=== PATIENT | female | born 1985 | race Caucasian/White ===

== ENCOUNTER → 2017-07-09 13:40 | Outpatient (CLI) | payer OTHER, SELFPAY ==
[2017-07-09 15:51] LABS: Color, Urine Yellow (Yellow); Glucose, Dipstick Normal (Normal); Leukocyte Esterase-Dipstick Negative /ul (Negative); Protein-Dipstick Negative (Negative); Urine Bilirubin Dipstick Negative (Negative); Urine Clarity Clear (Clear); Urine Urobilinogen Normal (Normal)
[2017-07-09 16:05] LABS: Ketone-Dipstick 15 mg/dl (Negative)
[2017-07-09 16:06] LABS: Nitrite-Dipstick NEGATIVE (Negative); Specific Gravity, Urine 1.015 (1.002-1.030); Urine pH 6.5 (5.0 - 8.0)
[2017-07-09 16:11] LABS: Absolute Lymphocyte Count 1.21 X10^3/ul (0.83-4.51); Absolute Neutrophil Count 5.5 X10^3/uL (2.0-7.7); Basophil# 0.02 X10^3/uL; Basophil% 0.3 % (0-1); Eosinophil# 0.09 X10^3/uL; Eosinophils% 1.3 % (0-5); Hematocrit 35.3 % (37-47); Hemoglobin 12.2 g/dl (12.0-15.0); Lymphocyte # 1.21 X10^3/ul (4.0); Lymphocyte % 16.8 % (19-41); Mean Corp Hgb Conc 34.6 g/gl (32-36); Mean Corpuscular Hgb 31.5 pg (27.0-32.0); Mean Corpuscular Volume 91.2 fL (81-99); Mean Platelet Vol. 9.2 fl (6.2-12.0); Monocyte# 0.37 X10^3/uL; Monocyte% 5.1 % (0-10); Neutrophil % 76.4 % (47-70); Platelet Count 249 K/mm3 (150-450); RBC Distribution Width CV 13.2 % (11.6-14.6); RBC Distribution Width SD 43.4 fl (35.1-43.9); Red Blood Count 3.87 M/mm3 (4.2-5.4); White Blood Count 7.2 K/mm3 (4.4-11.0)
[2017-07-09 16:12] LABS: Occult Blood-Urine Negative /ul (Negative); POSITIVE COUNT NO; POSITIVE DIFFERENTIAL NO; POSITIVE MORPHOLOGY NO
[2017-07-09 16:32] LABS: Thyroid Stim Hormone (TSH) 3.52 uIU/mL (0.358-3.74)
[2017-07-09 17:28] LABS: HIV - WCH Non-Reactive (Nonreactive); Rubella IgG < 0.2 IU/mL
[2017-07-09 17:32] LABS: Chlamydia Trachomatis by PCR Negative (Negative); Neisserai gonorrhoeae by PCR Negative (Negative); Probe Check PASS; Sample Adequacy Control PASS; Specimen Processing Control PASS
[2017-07-11 11:02] LABS: HEPATITIS B SURFACE AG Negative (Negative); Hep C Antibodies <0.1 s/co ratio (0.0-0.9)
[2017-07-13 01:08] LABS: Prenatal RPR NONREACTIVE (NONREACTIVE)
[2017-07-14 12:47] LABS: HPV Reflexed? NOT INDICATED
== END ==
PROVIDERS: Visit Provider Obstetrics & Gynecology
DX: Z34.82 Encounter for supervision of other normal pregnancy, second trimester (principal); Z12.4 Encounter for screening for malignant neoplasm of cervix; Z11.3 Encounter for screening for infections with a predominantly sexual mode of transmission
CPT/HCPCS: 36415; 81002; 84443; 85025; 86703; 86762; 86803; 87340; 87491; 87591; 88175; G0145

== ENCOUNTER → 2017-10-02 10:09 | Outpatient (CLI) | payer OTHER, SELFPAY ==
[2017-10-02 11:11] LABS: Hematocrit 31.4 % (37-47); Hemoglobin 11.2 g/dl (12.0-15.0); Mean Corp Hgb Conc 35.7 g/gl (32-36); Mean Corpuscular Hgb 32.9 pg (27.0-32.0); Mean Corpuscular Volume 92.4 fL (81-99); Mean Platelet Vol. 8.9 fl (6.2-12.0); Platelet Count 206 K/mm3 (150-450); RBC Distribution Width SD 43.9 fl (35.1-43.9); Scan Indicated on CBC? Y/N NO; White Blood Count 7.2 K/mm3 (4.4-11.0)
[2017-10-02 11:20] LABS: Glucose Challenge Gest 1H 50g 94 mg/dL (70-140)
== END ==
PROVIDERS: Visit Provider Obstetrics & Gynecology
DX: Z34.83 Encounter for supervision of other normal pregnancy, third trimester (principal)
CPT/HCPCS: 36415; 82950; 85027

== ENCOUNTER → 2017-11-19 18:20 | Outpatient (CLI) | payer OTHER, SELFPAY ==
[2017-11-19 19:38] LABS: Group B Strep DNA By PCR Negative (Negative); Internal Control PASS; Probe Check PASS; Specimen Processing Control PASS
== END ==
PROVIDERS: Family Provider Family Medicine; PCP Family Medicine; Visit Provider Obstetrics & Gynecology
DX: Z36.85 Encounter for antenatal screening for Streptococcus B (principal)
CPT/HCPCS: 87081; 87653

== ENCOUNTER 2017-12-10 06:50 | Inpatient (IN) | payer SELFPAY ==
[2017-12-10] MEDS: Lactated Ringers 1,000 ML 50 ML IV ×2 (07:55→11:00)
[2017-12-10 08:08] LABS: Hematocrit 36.3 % (37-47); Hemoglobin 12.8 g/dl (12.0-15.0); Mean Corp Hgb Conc 35.3 g/gl (32-36); Mean Corpuscular Hgb 33.2 pg (27.0-32.0); Mean Corpuscular Volume 94.3 fL (81-99); Mean Platelet Vol. 9.3 fl (6.2-12.0); Platelet Count 203 K/mm3 (150-450); RBC Distribution Width CV 13.1 % (11.6-14.6); RBC Distribution Width SD 44.8 fl (35.1-43.9); Red Blood Count 3.85 M/mm3 (4.2-5.4); Scan Indicated on CBC? Y/N NO; White Blood Count 8.6 K/mm3 (4.4-11.0)
[2017-12-10 08:22] VITALS: BMI 25.1
[2017-12-10] MEDS: fentaNYL-bupivacaine (epidural) 100 ML BAG EPIDURAL (09:55)
[2017-12-10] MEDS: Oxytocin 30 units/NS 500 ml 30 UNITS/500 ML IV.SOLN 334 UNITS IV (12:48)
[2017-12-10] MEDS: Oxytocin 30 units/NS 500 ml 30 UNITS/500 ML IV.SOLN 167 UNITS IV (13:17)
[2017-12-10] MEDS: 0.9% Saline Lock 10 ML Syringe IV (14:30)
--- NOTE | 2017-12-10 17:46 | PCM.OB.VAG ---
Vaginal Delivery Maternal Presentation: Active Labor 39 wk prior C section. Labor. Amniotic Membrane Rupture Type: Artificial Amniotic Fluid Description: Clear Final JOSÉ: 12/17/17 Gestational age: 39 Weeks and 0 Days Date of Procedure: 12/10/17 Pre-Operative Diagnosis: 39 wk labor Post-Operative Diagnosis: Same S/P . Surgery/ Procedure Performed: Spontaneous Vaginal Delivery Anesthesiologist: Lisa Johnson - ALISHA Type of Anesthesia: Epidural Description of Procedure: of a velasquez viable female over 2nd degree laceration Head delivered CHARLEE No nuchal cord noted. Shoulders delivered easily. OP and nares bulb suctioned and baby to maternal abdomen Cord clamped x two and cut. Baby vigorous and crying. PP exam; 2nd degree vaginal and perineal laceration repaired to hemostatic, intact with 3-0 Vicryl. Small 1st degree L vaginal laceration also repaired. Placenta delivery by spont expulsion, expression. 3V cord intact, normal appearing, non calcified placenta with trailing membranes. EBL 350 cc Pt and tolerated delivery well. To recovery , stable condition. Presentation: Vertex, CHARLEE Placental Delivery Description: Spontaneous, Expressed Placenta Disposition: [facility] Cord Vessel Description: 3 Vessels Cord Entanglement: None Estimated Blood Loss: 350 A gender: Female (1 minute): 8 (5 minute): 9 Episiotomy Description: None Laceration: Midline, 2nd degree - with first deg laceration at L vaginal wall also noted and repaired. Medications given after delivery: IV Pitocin Complications: None
--- NOTE | 2017-12-10 17:55 | PCM.DCVAG ---
Discharge Diet: No Restrictions Discharge Activity: May Shower, May Take a Tub Bath Return to work on:: 01/21/18 May resume sexual activity in: 4-6 weeks Additional Activity Instructions:: Nothing in the vagina for 4-6 weeks. You may return to work/school in 6 weeks. Additional Instructions: If you experience any of the following, contact your healthcare provider. Bleeding that soaks a pad every hour for 2 hours Fever 100.4 or higher Unrelieved abdominal pain Inability to urinate or burning while urinating). Visual changes Severe headache Flu-like symptoms Pain or redness in one of both of your breasts Pain, warmth, tenderness or swelling in your legs, especially the calf area Frequent nausea and vomiting Symptoms of depression or anxiety If you experience any of the following, call 911 or go to the nearest Emergency Room. Chest pain Problems breathing Seizure activity Partial or complete paralysis of a body part, slurred speech, weakness or drooping of the face, or a sudden inability to walk or hold your balance Allergies/Adverse Reactions: Allergies No Known Allergies Allergy (Verified 06/26/16 18:30) Medications to take at Discharge Vits [Prenatabs FA ] 1 tablet PO DAILY 10/21/14 Please Follow Up With: Balbina Cruz MD - [phone] When: Call to make an appointment with your doctor in 6 weeks. Primary Care Physician: Ronald Daugherty MD [Primary Care Provider] - Test Results: Test results from this visit will be discussed in further detail at your follow-up appointment, if applicable.
--- NOTE | 2017-12-10 17:57 | DCINST_ITS ---
Discharge Diet: No Restrictions Discharge Activity: May Shower, May Take a Tub Bath Return to work on:: 01/21/18 May resume sexual activity in: 4-6 weeks Additional Activity Instructions:: Nothing in the vagina for 4-6 weeks. You may return to work/school in 6 weeks. Additional Instructions: If you experience any of the following, contact your healthcare provider. * Bleeding that soaks a pad every hour for 2 hours * Fever 100.4 or higher * Unrelieved abdominal pain * Inability to urinate or burning while urinating). * Visual changes * Severe headache * Flu-like symptoms * Pain or redness in one of both of your breasts * Pain, warmth, tenderness or swelling in your legs, especially the calf area * Frequent nausea and vomiting * Symptoms of depression or anxiety If you experience any of the following, call 911 or go to the nearest Emergency Room. * Chest pain * Problems breathing * Seizure activity * Partial or complete paralysis of a body part, slurred speech, weakness or drooping of the face, or a sudden inability to walk or hold your balance Allergies/Adverse Reactions: Allergies No Known Allergies Allergy (Verified 06/26/16 18:30) Medications to take at Discharge Vits [Prenatabs FA ] 1 tablet PO DAILY 10/21/14 Please Follow Up With: Balbina Cruz MD - [phone] When: Call to make an appointment with your doctor in 6 weeks. Primary Care Physician: Ronald Daugherty MD [Primary Care Provider] - Test Results: Test results from this visit will be discussed in further detail at your follow- up appointment, if applicable.
[2017-12-10 19:45] VITALS: BP 101/57; PULSE 77; RESP 18; TEMP 36.6; O2SAT 98
[2017-12-11 00:42] VITALS: BP 91/55; PULSE 59; RESP 16; TEMP 36.3
[2017-12-11 04:48] VITALS: BP 90/51; PULSE 72; RESP 18; TEMP 36.2
--- NOTE | 2017-12-11 07:17 | PCM.PN.OB ---
Subjective: PPD#1 , Doing well. Nursing, but baby sleepy this am. Pain / cramping with nursing. No other concerns voiced. - Physical Exam General: Alert, Oriented x3, Cooperative, No apparent distress HEENT: Atraumatic Neck: Supple Abdomen: Soft - Fundus firm NT at approx 3 cm inferior to umbilicus Extremities: No edema Neurological: Cranial nerves II-XII grossly intact Psych/Mental Status: Normal Affect Vital Signs Temp Pulse Resp BP Pulse Ox 97.2 F L 72 18 90/51 L 98 12/11/17 04:48 12/11/17 04:48 12/11/17 04:48 12/11/17 04:48 12/10/17 19:45 Oxygen Delivery Method Room Air Weight: 60.4 kg Body Mass Index (BMI) 25.1 Intake and Output for Last 24 Hours 12/09/17 12/10/17 12/11/17 23:59 23:59 23:59 Intake Total 2750 / 2750 Output Total 1500 / 1500 Balance 1250 / 1250 Laboratory Tests Past 24 Hrs 12/10/17 12/10/17 07:55 07:55 WBC 8.6 RBC 3.85 L Hgb 12.8 Hct 36.3 L MCV 94.3 MCH 33.2 H MCHC 35.3 RDW 13.1 RDW Differential 44.8 H Plt Count 203 MPV 9.3 Blood Type A POSITIVE Antibody Screen NEGATIVE Medical Necessity - Tobacco Use Smoking Status: Never smoker Assessment/Plan All Active Problems Incomplete with delayed or excessive hemorrhage (Acute) PPD#1 , Stable pp. Continue care. May dischg later today if baby is released and patient requests.
[2017-12-11 08:10] VITALS: BP 95/50; PULSE 64; RESP 16; TEMP 36.4; O2SAT 100
[2017-12-11 12:17] VITALS: BP 96/52; PULSE 56; RESP 16; TEMP 36.6; O2SAT 100
[2017-12-11 17:05] VITALS: BP 105/67; PULSE 93; RESP 16; TEMP 36.6; O2SAT 98
--- NOTE | 2017-12-18 16:19 | NURSING ---
follow up phone call left voicemail
--- NOTE | 2017-12-20 10:33 | NURSING ---
Patient returned phone call after follow up phone call attempt, states everything is going very well, the isatuya eats well, she has plenty of milk, baby poops and pees with every diaper change but states she was worried the baby was not back to birthweight yet, following up with her ped next week. Baby was 7#3ox at was 6:14oz at d/c and baby is now 7# before the two week rupal, encouraged mother that with the stools and voids and contentment of the baby that this was normal and to follow up with her dr in person. States she was very satisfied with her care
== END 2017-12-11 17:05 | disposition home or self-care (01) | DRG 775 ==
PROVIDERS: Admitting Provider Obstetrics & Gynecology; Family Provider Family Medicine; PCP Family Medicine; Visit Provider Obstetrics & Gynecology
DX: O70.1 Second degree perineal laceration during delivery (principal); Z37.0 Single live birth; O34.219 Maternal care for unspecified type scar from previous cesarean delivery; Z3A.39 39 weeks gestation of pregnancy
CPT/HCPCS: 59025; 59050; 85027; 86850; 86900; 99218; J7120; A4216; G0378

== ENCOUNTER → 2019-01-30 14:19 | Outpatient (CLI) | payer OTHER, SELFPAY ==
[2019-01-30 18:44] LABS: Chlamydia Trachomatis by PCR Negative (Negative); Neisserai gonorrhoeae by PCR Negative (Negative); Probe Check PASS; Sample Adequacy Control PASS; Specimen Processing Control PASS
== END ==
PROVIDERS: Visit Provider Obstetrics & Gynecology
DX: Z11.3 Encounter for screening for infections with a predominantly sexual mode of transmission (principal); Z32.01 Encounter for pregnancy test, result positive
CPT/HCPCS: 87491; 87591

== ENCOUNTER → 2019-03-03 10:13 | Outpatient (CLI) | payer OTHER, SELFPAY ==
[2019-03-03 11:07] LABS: Absolute Lymphocyte Count 1.28 X10^3/uL (0.83-4.51); Absolute Neutrophil Count 4.7 X10^3/uL (2.0-7.7); Basophil# 0.02 X10^3/uL; Basophil% 0.3 % (0-1); Eosinophil# 0.04 X10^3/uL; Eosinophils% 0.6 % (0-5); Hematocrit 35.3 % (37-47); Hemoglobin 12.4 g/dL (12.0-15.0); Lymphocyte # 1.28 X10^3/ul (4.0); Lymphocyte % 19.9 % (19-41); Mean Corp Hgb Conc 35.1 g/dL (32-36); Mean Corpuscular Hgb 32.5 pg (27.0-32.0); Mean Corpuscular Volume 92.7 fL (81-99); Mean Platelet Vol. 9.3 fl (6.2-12.0); Monocyte# 0.35 X10^3/uL; Monocyte% 5.4 % (0-10); NRBC Flagged by Analyzer 0 % (0-5); Neutrophil # 4.73 X10^3/uL (2.7-7.7); Neutrophil % 73.5 % (47-70); Platelet Count 254 K/mm3 (150-450); RBC Distribution Width CV 12.7 % (11.6-14.6); RBC Distribution Width SD 43.2 fl (35.1-43.9); Red Blood Count 3.81 M/mm3 (4.2-5.4); White Blood Count 6.4 K/mm3 (4.4-11.0)
[2019-03-03 11:09] LABS: Color, Urine Yellow (Yellow); Glucose, Dipstick Normal (Normal); Ketone-Dipstick 5 mg/dl (Negative); Leukocyte Esterase-Dipstick Negative /ul (Negative); Nitrite-Dipstick Negative (Negative); Occult Blood-Urine Negative /ul (Negative); Protein-Dipstick Negative (Negative); Specific Gravity, Urine 1.015 (1.002-1.030); Urine Bilirubin Dipstick Negative (Negative); Urine Clarity Clear (Clear); Urine Urobilinogen Normal (Normal)
[2019-03-03 11:48] LABS: Thyroid Stim Hormone (TSH) 3.85 uIU/mL (0.358-3.74)
[2019-03-03 12:36] LABS: HIV - WCH Non-Reactive (Nonreactive); Hepatitis B Surface Antigen Non-Reactive (Nonreactive); Hepatitis C Antibody Non-Reactive (Nonreactive); Rubella IgG 1.7 IU/mL
[2019-03-03 14:15] LABS: Free T3 2.1 pg/mL (2.18-3.98); T4 Free Direct 0.87 ng/dL (0.76-1.46)
[2019-03-06 03:07] LABS: Prenatal RPR NONREACTIVE (NONREACTIVE)
== END ==
PROVIDERS: Visit Provider Obstetrics & Gynecology
DX: Z34.82 Encounter for supervision of other normal pregnancy, second trimester (principal)
CPT/HCPCS: 36415; 81002; 84439; 84443; 84481; 85025; 86703; 86762; 86803; 87340

== ENCOUNTER → 2019-05-21 11:44 | Outpatient (CLI) | payer OTHER, SELFPAY ==
[2019-05-21 14:09] LABS: Hematocrit 31.6 % (37-47); Hemoglobin 10.9 g/dL (12.0-15.0); Mean Corp Hgb Conc 34.5 g/dL (32-36); Mean Corpuscular Hgb 33.3 pg (27.0-32.0); Mean Corpuscular Volume 96.6 fL (81-99); Mean Platelet Vol. 9.5 fl (6.2-12.0); Platelet Count 217 K/mm3 (150-450); RBC Distribution Width CV 12.9 % (11.6-14.6); RBC Distribution Width SD 45.1 fl (35.1-43.9); Red Blood Count 3.27 M/mm3 (4.2-5.4); White Blood Count 6.4 K/mm3 (4.4-11.0)
[2019-05-21 14:11] LABS: Glucose Challenge Gest 1H 50g 90 mg/dL (70-140)
== END ==
PROVIDERS: Visit Provider Obstetrics & Gynecology
DX: Z34.82 Encounter for supervision of other normal pregnancy, second trimester (principal)
CPT/HCPCS: 36415; 82950; 85027

== ENCOUNTER → 2019-07-18 10:57 | Outpatient (CLI) | payer OTHER, SELFPAY | PROVIDERS: Visit Provider Obstetrics & Gynecology | DX: Z34.83 Encounter for supervision of other normal pregnancy, third trimester (principal); Z36.85 Encounter for antenatal screening for Streptococcus B | CPT/HCPCS: 87081 ==

== ENCOUNTER 2019-08-16 13:05 | Inpatient (IN) | payer SELFPAY, OTHER ==
[2019-08-16] VITALS (26 sets, daily range): BP systolic 94–120; BP diastolic 55–72; PULSE 59–97; TEMP 36.2–37.2; O2SAT 82–100; BMI 26.6
[2019-08-16] MEDS: Lactated Ringers 1,000 ML 200 ML IV (13:30)
[2019-08-16 13:44] LABS: Absolute Lymphocyte Count 1.28 X10^3/uL (0.83-4.51); Absolute Neutrophil Count 7.3 X10^3/uL (2.0-7.7); Basophil# 0.01 X10^3/uL; Basophil% 0.1 % (0-1); Eosinophil# 0.03 X10^3/uL; Eosinophils% 0.3 % (0-5); Hemoglobin 11.6 g/dL (12.0-15.0); Lymphocyte # 1.28 X10^3/ul (4.0); Lymphocyte % 13.9 % (19-41); Mean Corp Hgb Conc 35.2 g/dL (32-36); Mean Corpuscular Hgb 32.9 pg (27.0-32.0); Mean Corpuscular Volume 93.5 fL (81-99); Mean Platelet Vol. 9.7 fl (6.2-12.0); Monocyte# 0.55 X10^3/uL; NRBC Flagged by Analyzer 0 % (0-5); Neutrophil # 7.31 X10^3/uL (2.7-7.7); Neutrophil % 79.4 % (47-70); Platelet Count 230 K/mm3 (150-450); RBC Distribution Width CV 13.3 % (11.6-14.6); RBC Distribution Width SD 45.2 fl (35.1-43.9); Red Blood Count 3.53 M/mm3 (4.2-5.4); White Blood Count 9.2 K/mm3 (4.4-11.0)
--- NOTE | 2019-08-16 15:33 | HP.PCM_ITS ---
History and Physical Date of Admission: 08/16/19 [facility] [place] - [place]ORY AND PHYSICAL (08/16/2019) Name: ELISABET MAZARIEGOS History of the : This is a 34 year old [id number] who presents in active labor. She has had 2 prior VBACs. OB Physician: LEANDRO 's Physician: [facility] ...................................................................... : 1985 Age: 34 Address: [address] [place] [address] Phone: H) [phone] Insurance Carrier: [facility] [id number] Emergency Contact: LIS MAYORGA [phone] ...................................................................... Final JOSÉ: 08/15/19 By Ultrasound: PARITY: (G-Total Pregnancies P-Fullterm,Premature,Induced AB,Spont AB, Ectopics, Multiple,Living) JOSÉ CONFIRMATION: By LMP: 03/12/17 Initial Exam: 08/15/19 By First Ultrasound Exam: 08/15/19 Final JOSÉ: 08/15/19 OB PROBLEM LIST: Two successful VBACs and plans third. Daughter with Brittle hair syndrome Ovarian cyst noted at NOB sono. simple appearing, 4 cm. asx RUBELLA NONIMMUNE Offer MMR vaccine pp. TSH high Check Free T3 and free T4 Unsure conception date. Conceived while nursing Initial exam approx 12 wk EDC 08/15/2019 ALLERGIES: NKDA MEDICATIONS: Calcium Magnesium 500 mg calcium-250 mg tablet daily Daily Fiber (psyllium-sucrose) 3.4 gram/12 gram oral powder daily 28 mg iron-800 mcg tablet One pill by mouth once a day Probiotic 10 billion cell capsule 1 daily Supplement (s) [No Strength] Fish Oil daily Synthroid 50 mcg tablet 1 po daily SOCIAL HISTORY: Smoking - Never Alcohol Use - None Diet - balanced Diet, caffeine < 2 drinks per day and Water intake tries for 1-2 liters Lifestyle - low stress lifestyle Exercise - active work Employer - Homemaker Job Description - Illicit Drug Use - denies use of street drugs Sexual Activity - Residence - lives with Place of - [place] Spouse-Sig Other Name - Benitez Spouse-Sig Other Occupation - [employer], [place] Spouse-Sig Other Phone No - [phone] work Children Name(s) - Se '12; Andrade '15, Paz 18 PRIOR DELIVERY HISTORY DEL DATE GEST LAB WT LB WT OZ TYPE ANES LABOR TX 01 Aug 10 10 0 0 0 Sab None No Dec 22 39 8 7 3 Vag Epidural No Oct 19 38 6 7 8 Vag Epidural No Jun 23 12 0 0 0 D and General No Dec 16 39 0 6 15 C-Sec Epidural No ANTEPARTUM FLOW CHART VISIT GE RTC FU F F GA U U DATE WK MD WKS HT PN HR M SS BP ED WT GA GL D EF ST __ ____ ___ __ __ ___ __ __ __ ___ __ __ __ ___ __ 09 Aug JMW 1 38 V + + 124/60 sl 141 - - 5 75 0 02 Aug 38 CH 1 39 V + + 100/62 sl 140 tr - 4 75 -1 27 Jul 38 CH 1 39 V + + 90/60 0 139 tr - 4 75 -1 13 Jul 36 CH 1 36 V + ++ 110/68 0 139 tr ne 3+ 50 -2 27 Jun 33 CH 2 34 V + + 94/60 0 138 - - 14 Jun 32 CH 2 32 V + + 92/70 sl 136 tr - 30 Jun 04 CH 2 29 + ++ 110/56 0 134 ne ne 15 Jun 02 CH 2 28 + + 100/70 sl 133 - - 02 May 31 CH 3 24 + + 90/50 sl 131 - - 05 Apr 26 BRAD 4 + + 98/70 124 tr - 28 Feb 19 ELB 4 - - + ? 90/70 122 tr - ANTEPARTUM NOTE(S): Aug 14 2019: Good FM, declines induction Aug 07 2019: reviewed FM, SROM, and labor Aug 01 2019: uncomfortable Jul 18 2019: gb today. spotting x 2 days Jul 03 2019: feeling well. Jun 20 2019: feeling well. Jun 05 2019: c/o abd pain; no n/v/d May 21 2019: feeling well. Glucola given drawn today. May 08 2019: feeling well. Glucola given. Apr 10 2019: Feeling well, no complaints Mar 03 2019: Ovarian cyst 4 cm COMPREHENSIVE ANTEPARTUM NOTE(S): Aug 14 2019: Still having ctx's daily. No leaking fluid or spotting. Good FM. She is not sure she wants an induction, would like to discuss today. She will pre-register today. kbm Aug 07 2019: Reviewed option for induction and not too interested at this time. Will discuss further with CH. LMT Aug 07 2019: Routine PNV. FM+. FHR 140. Wants SVE today. Unchanged at 4/75/-1 soft mid position. IOL discussed now at 39.0 d/t decreased FM, advanced dilation and distance from the hospital. If does not want IOL to continue to do BID kick counts, 4 in 1 hour or 10 in 2 hours. Encouraged to call if contractions become more regular Q10 minutes apart for at least a hour. To call with decreased FM and to come in. To call with any s/s of labor. Will schedule next PNV in 1 week, but will talk to about IOL and call us if wanting to be added to the schedule next week - Aug 01 2019: Elisabet is here for visit. States feels more uncomfortable with this baby than others. Feels uncomfortable when walking, more pressure. Discussed changes from prior pregnancies and position of fetus can make this more uncomfortable. FM, SROM, and labor reviewed. Can discuss all further with . T Aug 01 2019: Routine PNV. Wanted to be seen in person d/t irregular UC for days with decreased FM a few days ago. Reports good FM now, its just starting to slow down. FHR 140. Wants SVE today. Change to 4/75/-1 soft mid position. IOL discussed at 39.0 d/t decreased FM, advanced dilation and distance from the hospital. If does not want IOL to continue to do BID kick counts, 4 in 1 hour or 10 in 2 hours. Will wait one more week and wishes to be seen in person next week . Is hoping to go on her own and reassurance given with how far she has come already. Encouraged to call if contractions become more regular Q10 minutes apart for at least a hour. To call with decreased FM and to come in. To call with any s/s of labor. - Jul 24 2019: Tele appt today due to Covid-19 precautions. Reports feeling well with good FM. Understands Covid-19 precautions and advised when to call. Reviewed GBS from last visit negative. We are offering video/phone messages for all women in the last month if she has a BP cuff at home. If unable to get BP at home we are recommending weekly appts in the final month for surveillance. At this time no elective inductions and hospital protocols reviewed. She has a BP cuff at home and will check BP prior to next weeks telephone appt. The week after she will come in for SVE just due to already being 3cm at last visit, irregular [facility] and living 45 minutes away from the hospital. To call with decreased FM, ROM, bleeding or regular UC. Reviewed office still being open and nurse triage line with provider department operations manager 27/11. 10 minutes spent on the phone. - Jul 21 2019: H taken to OB.tkg Jul 18 2019: Reports +FM. FHR 138. Reviewed GBS and swab collected today. Will review at next visit. Wishes to have SVE today with [facility] and two days of spotting. To start weekly appts. [facility] Covid-19 restriction handout given. Reviewed signs of labor and when to call. Will return in 1 week. - Jul 03 2019: FM+. FHR 150. Feeling well and wearing compression stockings. Unsure if bladder is leaking or if she has ROM. States its when shes relaxed and noticed it most in the bathtub. It comes and goes randomly, not continuous. Advised to sit on toilet and try to stop midstream like you would urinating and to wear a pantyliner because urine and amniotic fluid smell different from each other. If unsure to call to come in for testing in office or afterhours would go to for testing. Will return in 2 weeks for routine PNV then to start weekly visits. Discussed GBS. If any questions or concerns to call or make a list for next visit. Understands signs of labor and when to call. - Jun 20 2019: Routine PNV. Reports +FM. FHR 138. This week baby is laying vertex which is making her feel a lot more comfortable. Feeling well with no questions or concerns. To return in 2 weeks for routine PNV. - Jun 19 2019: Routine PNV. Reports +FM. FHR. This week baby is laying. Feeling well with no questions or concerns. To return in 2 weeks for routine PNV. - Jun 05 2019: Reports lots of +FM. FHR 138. Lots of abdominal pain last night that wrapped around. Baby is currently laying directly transverse and pushing outwards. Discussed position and how to get him to move when she is uncomfortable. Did get call about labs and trying to increase iron rich foods, but did get OTC iron as well. Tries to remember it daily. Asked about how to prevent tears during delivery. Had 2nd degree tears at the same time. Discussed perineal massage in the last month of as well as during delivery giving good head counterpressure to have a controlled delivery as well as perineal support with warm washclothes. May use mineral oil as head it to help facilitate head delivery. Wants provider to do everything that helps. Feels reassured, but understands may tear along the same spot again. Will return in 2 weeks for routine PNV. - May 21 2019: (m.m.f,m*) Routine 28 week labs today. Will call if anemic or if elevated GTT. Has been eating higher iron foods. Wearing bilateral com pression stockings and drinking lots of water. Has noticed a major increase in feeling better since. BP slightly up from last time which she thinks is a reason she feels better. FHR today 130s and listened for 1 minute without skipped beats! FM++. Discussed normal movement now and if ever decreased how to do proper kick counts, laying on left side with ice water 4 in 1 hour or 10 in 2 hours. Reviewed warning signs and signs of PTL. Will start every 2 week appts. Has not met KW yet. To call with questions or concerns. - May 08 2019: FHR 130-140s. arrythmia with missed beats heard every 10- [address] Jewell who agrees that we will see her in 2 weeks and listen. If still hearing will start weekly appointments to monitor, but should be something anatomical that baby will outgrow. States she had labwork drawn [facility] due to her genetic disorder and the doctor let her know she was borderline anemic. Told her to increase red meats and green leafy vegatables and with dietary adjustments alone we will see at 3rd trimester labs. Is okay going on iron supplementation if labs still show lower at next visit. Has been getting dizzy when getting out of bed in the morning. Discussed orthostasis and the fact her BP already runs low 90/50 today. Increase fluids and slow movements with demonstration given. She is very reasurred and will start implementating slow movement changes. Will return in 2 weeks for routine PNV and labs. - Apr 11 2019: Planning third . With Dr. 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 Planning with no epidural because of fast labor with the last. Understands MD needs to be in house for . Discussed other pain medication options. Is not taking Synthroid because she has had a family member try it and it made them feel bad and she states she is asymptomatic/feeling fine. Feeling well with no complaints or concerns. Will return in 4 weeks for routine PNV. - Mar 04 2019: Subclinical hypothyroidism. recommended Synthroid 50 mcg daily. Pt declining? 03/04/19 EB Mar 03 2019: Still with some AM nausea. Occasionally -- once weekly Wt gain ok. Cervical cultures reviewed. RTO in 4 wk. NOB nurse and labs today. Reviewed ways to dec n/v in AM and recommend crackers. UA neg. Hgb 12.4 g/dl. EB Mar 03 2019: Elisabet is here for NOB nurse visit with JOSÉ 08-15-19 planning her third at [facility] possibly without an epidural, using [facility] for post disch care and to breastfeed. 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 Her , Benitez is a holden at [employer]. The was a surprise but they are both pleased. Their last baby has Brittle Hair Syndrome or TTD, type D, Trichothiodystrophy. She is slightly developmentally disabled with crawling and walking. Elisabet's sister's 7 yo son has this, is in school and doing well. Genetics Screening form completed noting only this and she declines AFP and CF tests. Elisabet has NKA to drugs, food, latex or the environment. She is a lifetime non drinker, non smoker and denies any street drug use. Her diet is well balanced w minimal caffeine and 1-2 liters of water daily. More water intake enc and she knows to try. She is very active with her home and family. Warning signs in pg reviewed along w otc meds ok to take, wearing seatbelt ALWAYS despite position in vehicle and low on her abdomen, the importance of protein in her diet and reaching the office after hours. She states understanding. Elisabet has a copy of What to Expect. They have no indoor cats and she's had chickenpox. Routine labs drawn today and US done. Medical history includes a PCS and a D. She has a long standing problem with constipation and we discusses solutions. Enc to call w any concerns. Visit took approx 35 min. Darell GRANT NEW Feb 03 2019: GC and chlamydia NEG EB Jan 30 2019: Here for confirmation of appt. Last pap in July 2017 May defer pap today. Jan 30 2019: Elisabet is a 34 yrs old Gr 6, P3, SAB 2 here for Missed Menses. She has been nursing since her last delivery 12/2017, not having periods and very surprized to discover she is . She was having breast tenderness the end of December, gaining a little weight, so checked a home preg test-- Positive. Stopped nursing the first week in January. Having nausea and some vomiting-- offered an antiemetic, but she declines. Pap deferred this year. GC/Chlamydia cultures done. Hx C/S 2011 and 2 successful 's following; planning another . . Non-smoker. informational materials given and reviewed otc meds ok to take. NO NSAIDS. kbm REVIEW OF SYSTEMS: GENERAL - Denies fever, or chills SKIN - Denies rash, new skin lesions, or change in moles EYES - Denies blurred vision, or change in visual acuity EARS - Denies ear pain, or difficulty hearing NOSE - Denies nasal congestion, discharge, or bleeding MOUTH - Denies sore throat, or difficulty swallowing NECK - Denies pain or swelling RESPIRATORY - Denies shortness of breath, cough, wheezing CARDIOVASCULAR - Denies palpitations, chest pain, orthopnea, PND, peripheral edema, syncope or claudication GASTROINTESTINAL - Denies nausea, vomiting, diarrhea, constipation, Denies abdominal pain, melena and or bright red blood GENITOURINARY - Denies dysuria, frequency of urination, urgency, or hesitancy MUSCULOSKELETAL - Denies joint or muscle pain, or back pain NEUROLOGICAL - Denies localized numbness, weakness, or tingling PSYCHIATRIC - Denies depression, anxiety, substance abuse or suicide attempts ENDOCRINE - Denies heat or cold intolerance, weight loss or gain, increasing thirst HEMATO-IMMUNOLOGIC - Denies easy bruising, bleeding, oral ulcerations or recurrent infections GENETICS SCREENING: Age 35+ years: No Thalassemia: No Neural Tube Defect: No Down Syndrome: No AMA-SACHS: No Sickle Cell Disease: No Hemophilia: No Musc. Dystrophy: No Cystic Fibrosis: No-declines screening [place] Chorea: No Mental Retardation: No Fragile X: No Other genetic: No Other defects: No SABs/still births: Yes x2 Drugs since LMP: Yes, synthroid INFECTION HISTORY: High risk AIDS: No High risk Hepatitis: No Exposed to TB: No Exposed to Herpes: No Rash/viral illness since LMP: No History of STD: No MENSTRUAL HISTORY: *Menarche (Age Onset): 14* PAST SUMMARY: PARITY: 1. Total Pregnancies............ 6 2. Full Term Pregnancies........ 3 3. Premature.................... 0 4. Abortions - Induced.......... 0 5. Abortions - Spontaneous...... 2 6. Ectopics..................... 0 7. Multiple Births.............. 0 8. Living Children.............. 3 PAST #1: Date of :.................. 08/05/09 Gestation Weeks:................ 10 Length of labor(hours):......... 0 Sex:............................ Weight-lbs:............... 0 Weight-oz:................ 0 Type of Delivery:............... Sab Type of Anesthesia:............. None Place of Delivery:.............. none Treatment of Labor?:.... No Comment: NO D PAST #2: Date of :.................. 01/03/12 Gestation Weeks:................ 39 Length of labor(hours):......... 0 Sex:............................ M Weight-lbs:............... 6 Weight-oz:................ 15 Type of Delivery:............... C-Sect Type of Anesthesia:............. Epidural Place of Delivery:.............. [place] Treatment of Labor?:.... No Comment: FTP,PERSISTENT OP PAST #3: Date of :.................. 10/22/14 Gestation Weeks:................ 38 Length of labor(hours):......... 6 Sex:............................ M Weight-lbs:............... 7 Weight-oz:................ 8 Type of Delivery:............... Vag Type of Anesthesia:............. Epidural Place of Delivery:.............. [place] Treatment of Labor?:.... No Comment: NONE PAST #4: Date of :.................. 07/01/16 Gestation Weeks:................ 12 Length of labor(hours):......... 0 Sex:............................ Weight-lbs:............... 0 Weight-oz:................ 0 Type of Delivery:............... D and C Type of Anesthesia:............. General Place of Delivery:.............. [place] Treatment of Labor?:.... No Comment: PAST #5: Date of :.................. 12/10/17 Gestation Weeks:................ 39 Length of labor(hours):......... 8 Sex:............................ F Weight-lbs:............... 7 Weight-oz:................ 3 Type of Delivery:............... Vag Type of Anesthesia:............. Epidural Place of Delivery:.............. [place] Treatment of Labor?:.... No Comment: NO PHYSICAL EXAMINATION General Appearence: 34 yo female in no acute distress Vital Signs: AF, VSS Heart: RRR without rubs or gallops Lungs: CTA x 2 Breasts: deferred Abdomen: gravid Pelvis: Cervix:5-6/75 Presentation: cephalic Station: 0 Fetus: Size: AGA Movement: present Heart: present Labs for : ELISABET MAZARIEGOS since 11/18/2018 ORDER DATEIN DESCRIPTION VALUE UNITS RANGE A+ COMMENT CULTURE, GROUP B STREPTOCOCCUS 07/18/19 NOTE Original Ordering Provider: REGGIE Kidd Comments: VAGINAL/RECTAL ELIAN Culture Group B Beta Streptococcus is not isolated. Reviewed by LEANDRO Reviewed by LEANDRO GLUCOSE CHALLENGE GEST 1H 50G 05/21/19 NOTE Original Ordering Provider: REGGIE Kidd GLU GEST 50G 1H 90 mg/dL 70-140 Reviewed by LEANDRO CBC-COMPLETE BLOOD CNT NO DIFF 05/21/19 NOTE Original Ordering Provider: REGGIE [employer]serra Bernabe WBC 6.4 K/mm3 4.4-11.0 RBC 3.27 M/mm3 4.2-5.4 L HGB 10.9 g/dL 12.0-15.0 L HCT 31.6 % 37-47 L MCV 96.6 fL 81-99 MCH 33.3 pg 27.0-32.0 H MCHC 34.5 g/dL 32-36 RDW CV 12.9 % 11.6-14.6 RDW SD 45.1 fl 35.1-43.9 H PLT 217 K/mm3 150-450 MPV 9.5 fl 6.2-12.0 Reviewed by LEANDRO RPR 03/03/19 NOTE Original Ordering Provider: Balbina Cruz RPR NONREACTIVE NONREACTIVE Reviewed by BALBINA T4 FREE DIRECT 03/03/19 NOTE w Original Ordering Provider: Balbina Cruz T4 FREE DIRECT 0.87 ng/dL 0.76-1.46 Reviewed by BALBINA THYROID STIM HORMONE (TSH) 03/03/19 NOTE Original Ordering Provider: Balbina Cruz TSH 3.85 uIU/mL 0.358-3.74 H Reviewed by BALBINA BONNER T3 03/03/19 NOTE Original Ordering Provider: Balbina Cruz FREE T3 2.1 pg/mL 2.18-3.98 L Reviewed by BALBINA T AND S-NO CHARGE W/PNP 03/03/19 Reason for Type AND Screen/Red Cells: Surgery? [facility]~[address] [place], [address]~ BLOOD TYPE GEL A POSITIVE N AB SCREEN GEL NEGATIVE N w Reviewed by BALBINA HEPATITIS C ANTIBODY 03/03/19 NOTE Original Ordering Provider: Balbina Cruz HEPATITIS C AB Non-Reactive Nonreactive Non Reactive: < 0.8 Equivocal: >/= 0.8 to < 1.0 Reactive: >/= 1.0 The CDC recommends that a reactive/equivocal HCV antibody result be followed up by the HCV Nucleic Acid Amplification test ([id number]) Reviewed by BALBINA HEPATITIS B SURFACE ANTIGEN 03/03/19 NOTE Original Ordering Provider: Balbina Cruz HEPB SURFACE AG Non-Reactive Nonreactive Reviewed by BALBINA HIV - H 03/03/19 NOTE Original Ordering Provider: Balbina Cruz HIV - [facility] Non-Reactive Nonreactive Reviewed by BALBINA RUBELLA IGG 03/03/19 NOTE Original Ordering Provider: Balbina Cruz RUBELLA IGG 1.7 IU/mL Antibody results Interpretation of Immune Status < 5 IU/ml Presumed Non-immune 5 - < 10 IU/ml Equivocal > or = 10 IU/ml Presumed Immune Reviewed by BALBINA Reviewed by BALBINA URINALYSIS, ROUTINE (DIPSTICK) 03/03/19 NOTE Original Ordering Provider: Balbina Cruz COLOR Yellow Yellow CLARITY Clear Clear GLUCOSE, UR Normal mg/dl Normal BILIRUBIN URINE Negative mg/dL Negative KETONE UR 5 mg/dl Negative H SP.GR. DIPSTX 1.015 1.002-1.030 PH UR 7.0 5.0 - 8.0w PROT DIPSTX Negative mg/dl Negative UROBILI Normal mg/dl Normal NITRITE UR Negative Negative OCCULT BLOOD-UR Negative /ul Negative LEUK ESTERASE Negative /ul Negative Reviewed by BALBINA CBC W/DIFF, AUTOMATED 03/03/19 NOTE Original Ordering Provider: Balbina Cruz WBC 6.4 K/mm3 4.4-11.0 RBC 3.81 M/mm3 4.2-5.4 L HGB 12.4 g/dL 12.0-15.0 HCT 35.3 % 37-47 L MCV 92.7 fL 81-99 MCH 32.5 pg 27.0-32.0 H MCHC 35.1 g/dL 32-36 RDW CV 12.7 % 11.6-14.6 RDW SD 43.2 fl 35.1-43.9 PLT 254 K/mm3 150-450 MPV 9.3 fl 6.2-12.0 NEUT% 73.5 % 47-70 H LY% 19.9 % 19-41 MONO% 5.4 % 0-10 EO% 0.6 % 0-5 BASO% 0.3 % 0-1 IM GRAN % 0.300 % 0.0-0.9 IG% - Immature Granulocytes (promyelocytes, myelocytes and metamyelocytes) > 1% indicates that a LEFT SHIFT is Present. ABSOLUTE NEUT 4.7 X10 3/uL 2.0-7.7 ABSOLUTE LYMPH 1.28 X10 3/uL 0.83-4.51 NRBC, FLAGGED 0 % 0-5 Reviewed by BALBINA [facility] BY PCR 01/30/19 NOTE Original Ordering Provider: Balbina JULIO [facility] PCR Negative Negative NG BY PCR Negative Negative Reviewed by BALBINA Impression /Plan: 40 wk Intrauterine in active labor. Preparations in progress for delivery.
[2019-08-16] MEDS: Oxytocin 30 units/NS 500 ml 30 UNITS/500 ML IV.SOLN IV (16:21)
[2019-08-16] MEDS: Oxytocin 30 units/NS 500 ml 30 UNITS/500 ML IV.SOLN 334 UNITS IV (18:17)
--- NOTE | 2019-08-16 18:27 | PCM.OPRPT ---
Vaginal Delivery Maternal Presentation: Active Labor Amniotic Membrane Rupture Type: Artificial Amniotic Fluid Description: Clear Final JOSÉ: 08/15/19 Final JOSÉ Source: US <20 weeks Gestational age: 40 Weeks and 1 Days Date of Procedure: 08/16/19 Pre-Operative Diagnosis: Prior Section, IUP Post-Operative Diagnosis: Prior Section, IUP Surgery/ Procedure Performed: Spontaneous Vaginal Delivery Type of Anesthesia: None Description of Procedure: Vaginal after of a viable male infant with Apgars of 8/9 from an occiput anterior presentation with clear amniotic fluid and normal three-vessel placenta. No episiotomy. First-degree midline laceration repaired with 3-0 Rapide suture. Sponges okay. Delivery physician: Gareth Jewell MD. Presentation: Vertex Placental Delivery Description: Spontaneous Placenta Disposition: [facility] Cord Vessel Description: 3 Vessels Cord Entanglement: None Estimated Blood Loss: 250 cc A gender: Male (1 minute): 8 (5 minute): 9 Episiotomy Description: None Laceration: Midline, 1st degree Medications given after delivery: IV Pitocin Complications: None
--- NOTE | 2019-08-16 18:30 | DCINST_ITS ---
Discharge Activity: May Shower, May Take a Tub Bath May resume sexual activity in: 4-6 weeks Additional Activity Instructions:: Nothing in the vagina for 4-6 weeks. You may return to work/school in 6 weeks. Call your doctor if you observe: Inability to urinate, Inability to have a bowel movement, Using more than one pad per hour Additional Instructions: If you experience any of the following, contact your healthcare provider. * Bleeding that soaks a pad every hour for 2 hours * Fever 100.4 or higher * Unrelieved incision or abdominal pain * Swelling, redness, discharge or bleeding from your incision or episiotomy site * Your incision begins to separate * Problems urinating (including inability to urinate or burning while urinating). * Visual changes * Severe headache * Flu-like symptoms * Pain or redness in one of both of your breasts * Pain, warmth, tenderness or swelling in your legs, especially the calf area * Frequent nausea and vomiting * Symptoms of depression or anxiety If you experience any of the following, call 911 or go to the nearest Emergency Room. * Chest pain * Problems breathing * Seizure activity * Partial or complete paralysis of a body part, slurred speech, weakness or drooping of the face, or a sudden inability to walk or hold your balance Allergies/Adverse Reactions: Allergies No Known Allergies Allergy (Verified 08/16/19 12:42) Medications to take at Discharge Vits [Prenatabs FA ] 1 tablet PO DAILY 10/21/14 Please Follow Up With: Catherine Kidd, [facility] - [phone] When: Call to make an appointment with your web specialist in 2 and 6 weeks. Primary Care Physician: Lisbeth Oviedo MD [Primary Care Provider] - Test Results: Test results from this visit will be discussed in further detail at your follow- up appointment, if applicable.
--- NOTE | 2019-08-16 18:30 | PCM.DCVAG ---
Discharge Activity: May Shower, May Take a Tub Bath May resume sexual activity in: 4-6 weeks Additional Activity Instructions:: Nothing in the vagina for 4-6 weeks. You may return to work/school in 6 weeks. Call your doctor if you observe: Inability to urinate, Inability to have a bowel movement, Using more than one pad per hour Additional Instructions: If you experience any of the following, contact your healthcare provider. Bleeding that soaks a pad every hour for 2 hours Fever 100.4 or higher Unrelieved incision or abdominal pain Swelling, redness, discharge or bleeding from your incision or episiotomy site Your incision begins to separate Problems urinating (including inability to urinate or burning while urinating). Visual changes Severe headache Flu-like symptoms Pain or redness in one of both of your breasts Pain, warmth, tenderness or swelling in your legs, especially the calf area Frequent nausea and vomiting Symptoms of depression or anxiety If you experience any of the following, call 911 or go to the nearest Emergency Room. Chest pain Problems breathing Seizure activity Partial or complete paralysis of a body part, slurred speech, weakness or drooping of the face, or a sudden inability to walk or hold your balance Allergies/Adverse Reactions: Allergies No Known Allergies Allergy (Verified 08/16/19 12:42) Medications to take at Discharge Vits [Prenatabs FA ] 1 tablet PO DAILY 10/21/14 Please Follow Up With: Catherine Kidd, [facility] - [phone] When: Call to make an appointment with your test man in 2 and 6 weeks. Primary Care Physician: Lisbeth Oviedo MD [Primary Care Provider] - Test Results: Test results from this visit will be discussed in further detail at your follow-up appointment, if applicable.
[2019-08-16] MEDS: 0.9% Saline Lock 10 ML Syringe IV (20:49)
--- NOTE | 2019-08-16 22:49 | NURSING ---
RUDY gave report to nataliia GRANT at this time.
[2019-08-17] VITALS (11 sets, daily range): BP systolic 88–120; BP diastolic 51–67; PULSE 59–86; RESP 16–18; TEMP 36.4–36.7; O2SAT 97–99
[2019-08-17] MEDS: Ibuprofen 600 MG Tablet PO (09:43)
--- NOTE | 2019-08-17 11:25 | PN.OBGYN_ITS ---
Subjective: Patient without complaints. Breast-feeding going well. Some cramping with breast-feeding. Wants to go home today. - Physical Exam Vitals/I&O's: Vital Signs Temp Pulse Resp BP Pulse Ox 97.5 F L 86 18 88/51 L 99 08/17/19 09:15 08/17/19 09:15 08/17/19 09:15 08/17/19 09:15 08/17/19 09:15 Oxygen Delivery Method Room Air Weight: 141 lb 5.061 oz Body Mass Index (BMI) 26.6 Intake and Output for Last 24 Hours 08/15/19 08/16/19 08/17/19 23:59 23:59 23:59 Intake Total 1443.27 / 1443.27 Output Total 100 / 100 400 / 400 Balance 1343.27 / 1343.27 -400 / -400 Laboratory Results 08/16/19 13:30: WBC 9.2, RBC 3.53 L, Hgb 11.6 L, Hct 33.0 L, MCV 93.5, MCH 32.9 H, MCHC 35.2, RDW Std Deviation 45.2 H, RDW Coeff of Treva 13.3, Plt Count 230, MPV 9.7, Immature Gran % (Auto) 0.300, Neut % (Auto) 79.4 H, Lymph % (Auto) 13.9 L, [place] % (Auto) 6.0, Eos % (Auto) 0.3, Baso % (Auto) 0.1, Absolute Neuts (auto) 7.3, Absolute Lymphs (auto) 1.28, Nucleated RBC % 0 08/16/19 13:30: Blood Type A POSITIVE, Antibody Screen NEGATIVE Current Medications Acetaminophen (Tylenol) 1,000 mg PO Q8H PRN PRN PRN Reason: Pain Score 1-3/10 Bisacodyl (Dulcolax) 10 mg RECTAL UD PRN PRN Reason: If no BM Dibucaine (Dibucaine) 1 applic TOPICAL TID PRN PRN; Protocol PRN Reason: Discomfort Hydrocortisone (Hytone) 1 applic TOPICAL TID PRN PRN; Protocol PRN Reason: Discomfort Ibuprofen (Motrin) 600 mg PO Q6H PRN PRN PRN Reason: Pain Score 1-3/10 Last Admin: 08/17/19 09:43 Dose: 600 mg Documented by: Methylergonovine Maleate (Methergine) 0.2 mg IM X1 PRN PRN Reason: Excess bleeding/uterine atony Ondansetron HCl (Zofran) 4 mg IV Q4H PRN PRN PRN Reason: Nausea Oxycodone HCl (Oxyir) 5 - 10 mg PO Q4H PRN PRN PRN Reason: Pain Score 4-10/10 Senna/Docusate Sodium (Senokot-S, Ban-Colace) 1 - 2 tablet PO DAILY PRN PRN PRN Reason: Constipation Simethicone (Mylicon) 80 mg PO PCHS PRN PRN Reason: Indigestion/Stomach pain Sodium Chloride () 5 - 15 ml IV UD PRN PRN Reason: SALINE FLUSH Last Admin: 08/16/19 20:49 Dose: 10 ml Documented by: Zolpidem Tartrate (Ambien (Generic)) 5 mg PO QHS PRN PRN PRN Reason: Insomnia Medical Necessity - Tobacco Use Smoking Status: Never smoker Assessment/Plan All Active Problems Incomplete with delayed or excessive hemorrhage (Acute) Doing well day #1 status post routine spontaneous vaginal delivery. Will discharge to home with routine instructions.
--- NOTE | 2019-08-17 13:00 | NURSING ---
Patient declined MMR Vaccine. Signed declination form.
== END 2019-08-17 19:05 | disposition home or self-care (01) | DRG 807 ==
LOC: WPOUT 13:10 → WP 13:10
PROVIDERS: Admitting Provider Obstetrics & Gynecology; Visit Provider Obstetrics & Gynecology
DX: O65.5 Obstructed labor due to abnormality of maternal pelvic organs (principal); Z37.0 Single live birth; O34.219 Maternal care for unspecified type scar from previous cesarean delivery; O26.23 Pregnancy care for patient with recurrent pregnancy loss, third trimester; O70.0 First degree perineal laceration during delivery; Z3A.40 40 weeks gestation of pregnancy; N85.8 Other specified noninflammatory disorders of uterus
CPT/HCPCS: 59025; 59050; 85025; 86850; 86900; 86901; 99218; J7120; A4216; G0378